=== PATIENT | female | born 1995 | race Caucasian/White ===

== ENCOUNTER 2018-09-08 07:54 | Inpatient (IN) ==
[2018-09-08] MEDS ORDERED: Famotidine 20 MG/2 ML VIAL IVP PRN (07:58)
[2018-09-08] MEDS ORDERED: miSOPROStol 25 MCG TABLET PO PRN (07:58)
[2018-09-08] MEDS ORDERED: Naloxone 0.4 MG/ML INJ IVP PRN ×2 (07:58→11:46)
[2018-09-08] MEDS ORDERED: *HR* Nalbuphine 10 MG/ML AMPUL IVP PRN (07:58)
[2018-09-08] MEDS ORDERED: Metoclopramide 10 MG/2 ML VIAL IVP PRN (07:58)
[2018-09-08 08:54] LABS: Basophils % 0.2 %; Eosinophils # 0.1 K/mcL (0.0-0.6); Eosinophils % 1.6 %; Hematocrit 33.2 % (35.3-44.9); Immature Granulocytes % 1.3 % (0-4); Lymphocytes # 1.7 K/mcL (0.6-4.6); Mean Corpuscular HGB Conc 33.1 g/dL (31.6-35.5); Mean Corpuscular Hemoglobin 30.1 pg (28.0-33.3); Mean Platelet Volume 10.4 fL (9.4-12.4); Monocytes # 0.6 K/mcL (0.0-1.3); Monocytes % 9.2 %; Neutrophils # 3.8 K/mcL (1.6-8.9); Nucleated Red Blood Cells 0.3 /100 WBC (0); Platelet Count 165 K/mcL (140-400); Red Blood Count 3.65 M/mcL (3.82-4.97); Red Cell Distribution Width 13.2 % (11.5-14.5); Segmented Neutrophils % 60.7 %
[2018-09-08] MEDS: Ringers Solution, Lactated 1,000 ML IVC SCH ×2 (08:54→14:47)
--- NOTE | 2018-09-08 08:56 | OB/GYN History & Physical ---
Date of Encounter: 09/08/18 Time of Encounter: 08:53 Assessment and Plan (1) 39 weeks gestation of Current visit: Yes Status: Acute admitted for IOL Cytotec 50mcg PO x1 Epidural when desires (2) MTHFR deficiency complicating Current visit: Yes Status: Acute OB aware, no treatment indicated. Qualifiers: Trimester: third trimester Qualified Code(s): O99.283 - Endocrine, nutritional and metabolic diseases complicating , third trimester; E72.12 - Methylenetetrahydrofolate reductase deficiency History of Present Illness Chief complaint: Scheduled IOL HPI: Ms. Armstrong is a 23 year old female @ 40w0d presents for scheduled IOL. Induction was scheduled by Dr. Peraza for the Midwives to manage. Patient reports irregular contractions and +FM. Patient denies any complications with current . Patient does have a history of Opiate abuse but has been clean for 2 years. Patient has Hep C and MTHFR. Cytotec 50 mc PO x [address] Peraza's orders. Blood type: A+ Rubella:Immune Hep B: Pending, drawn on admission GBS:Negative Hep C: Positive Past Med Surg Social Fam HX - Past Medical History Source: patient Medical history: hepatitis, other Additional medical history: MTFR, Hx opiate addiction (heroin). 2 yrs sober. Psychiatric history: no psych history - Past Surgical History Surgical History: other Additional surgical history: Lt arm surgery (pins/rods) - Social History Smoking Status: Current every day smoker Smokeless Tobacco Status: No Alcohol use: none Drug use: none - Family History Mother Hx Family Medical Disorders: Yes (hyperthyroidism) Obstetrical History - Pregnancies : 2 Para: 1 Term: 1 : 0 Ab's: 0 Livin Medications and Allergies [facility] Gummy Vitamins 1 tab PO DAILY 08/12/18 [History] Allergy/AdvReac Type Severity Reaction Status Date / Time sulfamethoxazole Allergy Mild Hives Verified 08/12/18 19:42 [From Bactrim] trimethoprim [From Bactrim] Allergy Mild Hives Verified 08/12/18 19:42 Review of System OB - Constitutional Constitutional ROS IM: no chills, no fever(s), no headache(s) - Cardiovascular Cardiovascular: no chest pain, no edema, no palpitations, no pedal edema, no syncope - Respiratory Respiratory: no dyspnea - Gastrointestinal Gastrointestinal: no abdominal pain, no cramping, no diarrhea, no heartburn, no nausea, no vomiting - Genitourinary Genitourinary: no abnormal vaginal bleeding, no dysuria, no flank pain, no urinary frequency, no urinary urgency, no vaginal odor, no vaginal pruritis Exam - Constitutional Constitutional: well developed, well nourished, no acute distress, average body habitus - HEENT HEENT: Normocephaly, Mucus Membranes Moist - Neck Neck exam: full ROM, supple - Lungs Respiratory exam: CTAB - Cardiovascular Cardiovascular exam: RRR, +S1, +S2 - Abdomen Abdomen: Present: bowel sounds normal, gravid, non tender - Extremities Extremities exam: full ROM, normal capillary refill, pedal edema (1+ bilateral lower ext) Deep Tendon Reflex Grade: 2+ Normal - Uterus Uterus exam: Present: normal size, normal contour - Anus/Rectum Anus/Rectum: Present: normal perianal skin - Comments Comments: FHR 145 bpm moderate variability +15x15 accels no decels noted. Irregular contractions. Cat. 1 tracing Results Result Diagrams: 09/08/18 08:20 All other labs normal. - VTE Reasons for not Prescribing Prophylaxis: Treatment not Indicated - Low risk for VTE
[2018-09-08 09:19] LABS: Amphetamine Screen,Urine Negative ng/mL (Cutoff=1000); Barbiturate Screen,Urine Negative ng/mL (Cutoff=200); Benzodiazepines Screen,Urine Negative ng/mL (Cutoff=200); Cannabinoid Screen,Urine Negative ng/mL (Cutoff = 50); Cocaine Screen,Urine Negative ng/mL (Cutoff= 300); Opiate Screen,Urine Negative ng/mL (Cutoff=300); Phencyclidine Screen,Urine Negative ng/mL (Cutoff=25)
[2018-09-08] MEDS ORDERED: *HR* FentaNYL (PF) 100 MCG/2 ML VIAL EP ONE (11:46)
[2018-09-08] MEDS ORDERED: Ondansetron 4 MG/2 ML VIAL IVP PRN (11:46)
[2018-09-08] MEDS ORDERED: EPHEDrine 50 MG/ML VIAL IVP PRN (11:46)
[2018-09-08] MEDS ORDERED: *HR* Ropivacaine/PF 0.2% 20 ML VIAL EP ONE (11:46)
--- NOTE | 2018-09-08 11:51 | Anesthesia Evaluation PreOp ---
Date of Encounter: 09/08/18 Time of Encounter: 11:56 - Past History Planned Operation: KENDAL Cardiac History: Denies any Significant Hx Pulmonary History: Smoker (1/2pk/day for 11 years) COMPUTER SCIENTIST History: Other (scoliosis) Other Medical History: Hepatic (Hep C), Other (MTHFR, history opiate/heroine use) Anesthesia History: No Prior Anesthetic Complications, Past Anesthesia (previous epidural, Left arm ORIF) : Yes Alcohol Use: none Drug use: none Medications and Allergies [facility] Gummy Vitamins 1 tab PO DAILY 08/12/18 [History] Allergy/AdvReac Type Severity Reaction Status Date / Time sulfamethoxazole Allergy Mild Hives Verified 08/12/18 19:42 [From Bactrim] trimethoprim [From Bactrim] Allergy Mild Hives Verified 08/12/18 19:42 - Meds/Allergy Pre-op Review Medications Reviewed: Yes Allergies Reviewed: Yes Beta Blockers on Current Med List: No Anesthesia Results - Labs 09/08/18 08:20 Anesthesia Exam BP 127/68 P 82 T 98.6 R 16 Height: 5'2" Weight: 90.6kg NPO (# of Hours): 4 Pain Scale: 5 Pain Scale Used: Numeric (1 - 10) - HEENT Pupil (Motor): Pupils equal Mallampati: II Teeth: Normal Oral Opening: Greater than 3 - COMPUTER SCIENTIST LOC: Oriented COMPUTER SCIENTIST Motor: Normal RUE, Normal LUE, Normal RLE, Normal LLE, Normal Face COMPUTER SCIENTIST Sensory: Normal: RUE, LUE, RLE, LLE, Face - Cardiac Rhythm: Regular Murmur: None JVD: No Carotid Bruit: No - Pulmonary Breath Sounds: bilateral Clear Respiratory Effort: Symmetrical Anesthesia Assess/Plan ASA Score: 2 Level of consciousness: Cooperative Anesthetic Plan: Epidural Autologous Blood: No Monitoring Plan: Standard Monitors Recovery Plan: Other
--- NOTE | 2018-09-08 11:51 | OB Labor Progress Note ---
Date of Encounter: 09/08/18 Time of Encounter: 11:49 Labor Progress Note - Subjective Subjective: Patient doing well. Reports feeling contractions at this time. - Cervix Cervix: 5.5/80/-1 - Heart Tones Heart Tones: 125 bpm moderate variability +15x15 accels no decels noted. Cat. 1 tracing - [place]: 1-3 min apart - Interventions Interventions: SVE, AROM large amount of clear fluid. Patient tolerated well. - Plan Physician notified: No Plan: Continue labor management Patient may have epidural when desires anticipate
[2018-09-08] MEDS ORDERED: Epidural Premix (fent/bupiv) 110 ML EP SCH (12:00)
[2018-09-08] MEDS ORDERED: *HR* FentaNYL (PF) 100 MCG/2 ML VIAL ONE (12:44)
[2018-09-08] MEDS ORDERED: Lidocaine -MPF 2% 5 ML VIAL ONE (12:45)
[2018-09-08] MEDS ORDERED: Ropivacaine/PF 0.2% 200 MG/100 ML INFUS..BTL EP SCH (13:15)
[2018-09-08] MEDS ORDERED: ROPIVACAINE 0.2% EP SCH (13:30)
[2018-09-08] MEDS ORDERED: Ropivacaine/PF 0.2% 500 MG/250 ML INFUS..BTL EP SCH (13:30)
--- NOTE | 2018-09-08 14:08 | Anesthesia Procedures ---
Date of Encounter: 09/08/18 Time of Encounter: 13:05 Procedures: Anesthesia - Epidural/Spinal Patient ID/Chart reviewed: Yes Patient examined: Yes OB Eval: Gestational age: 40 OB Eval: : 2 OB Eval: Hx Para: 1 OB Eval: Dilated at (cm): 5 OB Eval: Contractions: Non-stressed pattern Consent Obtained: Yes Supplemental Oxygen: None/Room Air Site Prep: Aseptic Technique, Sterile prep and drape, Povidone-Iodine 1% Patient position: upright Local Anesthetic: Lidocaine 1% Amount of Local Anesthetic used: 3 Touhy Needle Gauge: 18 Touhy Needle Depth (cm): 5 Catheter Depth at Skin (cm): 14 Test Dose (1.5% Lido + Epi): Volume given (mls): 3 Test Dose Result: Negative Loading Dose: Other: Ropivicaine 0.2% 10ml Loading Dose Administered: Thru Catheter Infusion Med: Other (Ropivicaine 2mg/ml) Infusion Rate (mls/hr): [address]: Tegaderm, Tape Interspace Used: L4-L5 Loss of Resistance (CATALINA): Yes Blood: No CSF: No Paresthesia: No Procedure: KENDAL placed 1st pass in upright position without any immediate noted complications. Ropivicaine only bolus and Ropivicaine only drip (no fentanyl) requested by patient. VSS and FHT stable throughout. Vitals + FHT's: 1305 BP 126/67 P 85 R 20 1331 BP 116/67 P 83 R 16
[2018-09-08] MEDS ORDERED: Oxytocin 20 units/ LR 1000 mL 20 UNIT/1,000 ML BAG IVC SCH ×2 (14:15→19:06)
--- NOTE | 2018-09-08 17:15 | OB/GYN Procedure Note ---
Delivery - Delivery Date: 09/08/18 Provider: Caryn Reddy Intrapartum events: none Delivery induction: AROM, oxytocin, misoprostol Delivery monitor: external FHT, external uterine Anesthesia: epidural Quantitated Blood Loss: 100 - (s) Infant A Infant Delivery Date: 09/08/18 Infant Delivery Time: 16:13 Presentation: vertex Position: OA Gender: Female Viability: Viable Pounds: 8 Ounces: 12 Weight Gram: 3.98 kg at 1 minute: 8 at 5 mins: 9 Shoulder Dystocia: not encountered Specimens collected: cord blood Placenta: spontaneous Cord: 3 umbilical vessels - Repair Laceration Description: Labial, Superficial - Complications Delivery complications: none - Disposition Mom disposition: stable in LDR disposition: stable in LDR - Comments Comments: Called to LDR patient complete and ready to push. Patient placed in stirrups and prepped for vaginal delivery. Under maternal effort patient spontaneously delivered a viable female over an intact perineum. No nuchal, shoulder dystocia or meconium encountered. Infant was placed on maternal abdomen. Cord was clamped and cut after pulsations ceased. Cord blood collected. Placenta delivered spontaneously and intact. A superficial right labial laceration noted and hemostatic. EBL 100. All counts correct. Pericare provided. Both Mother and stable in LDR for 2 hour recovery.
[2018-09-08] MEDS ORDERED: Measles/Mumps/Rubella Vacc 0.5 ML VIAL SQ PRN (19:06)
[2018-09-08] MEDS ORDERED: Lanolin 7 G OINT...G. TP PRN (19:06)
[2018-09-08] MEDS: Ibuprofen 600 MG TABLET PO PRN (20:26)
[2018-09-09] MEDS: Acetaminophen 325 MG TABLET PO PRN ×2 (01:37→09:39)
[2018-09-09] MEDS: Ibuprofen 600 MG TABLET PO PRN (04:39)
[2018-09-09 08:06] VITALS: BP 113/71
[2018-09-09] MEDS ORDERED: Prenatal Vit/FA 1 EACH TABLET PO SCH (09:00)
--- NOTE | 2018-09-09 10:49 | Discharge Summary ---
Date of Encounter: 09/09/18 Time of Encounter: 10:46 - Discharge Diagnosis (1) Vaginal delivery Priority: Primary Status: Acute Comments: Pt meeting milestones. Discharge home today. (2) Breast feeding status of mother Priority: Secondary Status: Acute - Discharge Medications Prescriptions: Ibuprofen [Motrin] 600 mg PO Q6HR PRN #30 tablet PRN Reason: Cramping Docusate [Colace] 100 mg PO BID #30 capsule Home Medications: [facility] G[facility] Vitamins 1 tab PO DAILY 08/12/18 [History] Arm Brace [Wrist Brace] 1 each MC PRN PRN #1 each 09/09/18 [Rx] Docusate [Colace] 100 mg PO BID #30 capsule 09/09/18 [Rx] Ibuprofen [Motrin] 600 mg PO Q6HR PRN #30 tablet 09/09/18 [Rx] Lanolin [Lansinoh] 1 appl TP TID PRN oint...g. 09/09/18 [Rx] Allergies/Adverse Reactions: Allergy/AdvReac Type Severity Reaction Status Date / Time sulfamethoxazole Allergy Mild Hives Verified 08/12/18 19:42 [From Bactrim] trimethoprim [From Bactrim] Allergy Mild Hives Verified 08/12/18 19:42 Data Procedures and tests throughout hospitalization: Laboratory Tests 09/08/18 09/08/18 09/08/18 08:20 08:20 08:20 WBC 6.2 RBC 3.65 L Hgb 11.0 L Hct 33.2 L MCV 91.0 MCH 30.1 MCHC 33.1 RDW 13.2 Plt Count 165 MPV 10.4 Immature Gran % 1.3 Seg Neutrophils % 60.7 Lymphocytes % 27.0 Monocytes % 9.2 Eosinophils % 1.6 Basophils % 0.2 Neutrophils # 3.8 Lymphocytes # 1.7 Monocytes # 0.6 Eosinophils # 0.1 Basophils # 0.0 Nucleated RBCs/100 WBC 0.3 H Urine Opiates Screen Negative Ur Barbiturates Screen Negative Ur Phencyclidine Scrn Negative Ur Amphetamines Screen Negative U Benzodiazepines Scrn Negative Urine Cocaine Screen Negative U Marijuana (THC) Screen Negative Ur Drug Screen Interp See Below Hep Bs Antigen Nonreactive Date of admission: 09/08/18 07:54 Primary care physician: PCP NONE Consults: 11/26/18 19:06 Consult to Senior Painter [CONS] Routine Comment: Vaginal delivery, consult needed Consult to Snack Stewardess [CONS] Routine Reason for SW Consult: cord stat for history of opiate abuse. Clean x 2 years Discharging clinician: Zabrina Singh Anticipated date of discharge: 09/09/18 - Patient Status Disposition: Home, Self-Care Condition: Good Functional capacity at discharge: independent ambulation Overall status at discharge: patient is progressing back to baseline - Discharge Instructions Follow Up With: NONE,PCP [Primary Care Provider] - Jame Peraza MD [Partnered Physician] - - Diet and Activity Activity: increase activity as tolerated Diet: regular diet Hospital Course Reason for admission: induction of labor Delivery: Episiotomy: none Laceration: other (labial) Other procedures: none complications: none Discharge diagnosis: IUP at term delivered Pep baby: female Hospital course: - Delivery Date: 09/08/18 Provider: Caryn Reddy Intrapartum events: none Delivery induction: AROM, oxytocin, misoprostol Delivery monitor: external FHT, external uterine Anesthesia: epidural Quantitated Blood Loss: 100 - Infant (s) A Delivery Date: 09/08/18 Delivery Time: 16:13 Presentation: vertex Position: OA Gender: Female Viability: Viable Pounds: 8 Ounces: 12 Weight Gram: 3.98 kg at 1 minute: 8 at 5 mins: 9 Shoulder Dystocia: not encountered Specimens collected: cord blood Placenta: spontaneous Cord: 3 umbilical vessels - Repair Laceration Description: Labial, Superficial - Complications Delivery complications: none - Disposition Mom disposition: home PPD#1 Pep disposition: RAFAL observation, Time Attestation: Total time spent providing and/or coordinating discharge services: Time Spent: Less than 30 minutes Exam - Constitutional Vitals: Temp Pulse Resp BP Pulse Ox 97.8 F 75 14 113/71 99 09/09/18 08:05 09/09/18 08:05 09/09/18 08:05 09/09/18 08:05 09/09/18 08:05 General appearance IM: A&O X 3 - Respiratory Respiratory exam: Present: CTAB - Cardiovascular Cardiovascular exam IM: Present: RRR - GI/Abdominal GI/Abdominal exam IM: soft - Uterine Tone: Firm Uterus Position: 1 Finger Below Umbilicus - Extremities Exam Extremities exam IM: Present: pedal edema (1+ bilaterally hands and feet) - Neurological Exam Neurological exam: normal gait, oriented X3 - Psychiatric Additional comments: reports good mood
== END 2018-09-09 12:39 | disposition home or self-care (01) | DRG 560 ==
LOC: 1NENULAB 07:54 → 1NENUOBS 19:09
PROVIDERS: ADMIT Advanced Practice Midwife; ATTEND Advanced Practice Midwife

== ENCOUNTER 2022-02-23 15:42 | Observation (INO) | END 2022-02-23 16:55 | disposition home or self-care (01) | LOC: 1NENULAB | PROVIDERS: ADMIT Advanced Practice Midwife; ATTEND Advanced Practice Midwife ==

== ENCOUNTER 2022-03-04 11:01 | Inpatient (IN) ==
[~2022-03-04 11:01] MED LIST: *HR* Nalbuphine 10 MG/ML AMPUL IV PRN; Famotidine 20 MG/2 ML VIAL IVP PRN; Metoclopramide 10 MG/2 ML VIAL IVP PRN; Naloxone 0.4 MG/ML INJ IVP PRN
[2022-03-04] MEDS ORDERED: Penicillin G Potassium 5,000,000 UNIT in 0.9 % Sodium Chloride Mini Bag 100 ML IVPB ONE (11:05)
[2022-03-04] MEDS ORDERED: EPHEDrine 50 MG/ML VIAL IVP PRN ×2 (11:09→14:13)
[2022-03-04] MEDS ORDERED: Epidural Premix (fent/bupiv) 110 ML EP SCH (11:15)
[2022-03-04 12:16] LABS: Basophils % 0.4 %; Eosinophils # 0.2 K/mcL (0.0-0.6); Eosinophils % 2.3 %; Hematocrit 33.8 % (35.3-44.9); Hemoglobin 11.6 g/dL (11.5-15.4); Immature Granulocytes % 0.9 % (0-4); Lymphocytes # 1.5 K/mcL (0.6-4.6); Lymphocytes % 21.4 %; Mean Corpuscular HGB Conc 34.3 g/dL (31.6-35.5); Mean Corpuscular Hemoglobin 31.6 pg (28.0-33.3); Mean Corpuscular Volume 92.1 fL (83.0-100.0); Mean Platelet Volume 10.7 fL (9.4-12.4); Monocytes # 0.6 K/mcL (0.0-1.3); Monocytes % 8.8 %; Neutrophils # 4.7 K/mcL (1.6-8.9); Platelet Count 155 K/mcL (140-400); Red Blood Count 3.67 M/mcL (3.82-4.97); Segmented Neutrophils % 66.2 %
[2022-03-04 12:26] LABS: Amphetamine Screen,Urine Negative ng/mL (Cutoff=1000); Barbiturate Screen,Urine Negative ng/mL (Cutoff=200); Benzodiazepines Screen,Urine Negative ng/mL (Cutoff=200); Cannabinoid Screen,Urine Negative ng/mL (Cutoff = 50); Cocaine Screen,Urine Negative ng/mL (Cutoff= 300); Opiate Screen,Urine Negative ng/mL (Cutoff=300); Phencyclidine Screen,Urine Negative ng/mL (Cutoff=25)
[2022-03-04] MEDS: Ringers Solution, Lactated 1,000 ML IVC SCH ×2 (12:29→22:23)
[2022-03-04 12:50] LABS: Influenza A PCR Negative (Negative); Influenza B PCR Negative (Negative); Resp. Syncytial Virus PCR Negative (Negative)
[2022-03-04 12:51] LABS: SARS-CoV-2 by PCR (In House) Negative (Negative)
[2022-03-04] MEDS ORDERED: Ropivacaine/PF 0.2% 200 ML EP SCH (14:15)
[2022-03-04] MEDS ORDERED: Oxytocin 30 UNIT/503 ML BAG IVC ONE (16:05)
[2022-03-04] MEDS: Penicillin G Potassium 2,500,000 UNIT/105 ML MLS IVPB SCH ×2 (16:09→21:09)
[2022-03-04] MEDS ORDERED: Oxytocin 30 UNIT/503 ML BAG IVC SCH (16:15)
[2022-03-04] MEDS ORDERED: Ondansetron 4 MG/2 ML VIAL IVP PRN (22:22)
[2022-03-05] MEDS ORDERED: Ibuprofen 600 MG TABLET PO ONE (01:48)
[2022-03-05] MEDS ORDERED: EPHEDrine 50 MG/ML VIAL IVP PRN (05:01)
[2022-03-05] MEDS ORDERED: *HR* Nalbuphine 10 MG/ML AMPUL IV PRN (05:01)
[2022-03-05] MEDS ORDERED: Naloxone 0.4 MG/ML INJ IVP PRN (05:01)
[2022-03-05] MEDS ORDERED: Famotidine 20 MG/2 ML VIAL IVP PRN (05:01)
[2022-03-05] MEDS ORDERED: Ringers Solution, Lactated 1,000 ML IVC SCH (05:01)
[2022-03-05] MEDS ORDERED: Benzocaine/Menthol 56 GM AEROSOL SPRAY TP PRN (05:01)
[2022-03-05] MEDS ORDERED: Lanolin 7 G OINT...G. TP PRN (05:01)
[2022-03-05] MEDS ORDERED: Oxytocin 30 UNIT/503 ML BAG IVC SCH ×2 (05:01)
[2022-03-05] MEDS ORDERED: Metoclopramide 10 MG/2 ML VIAL IVP PRN (05:01)
[2022-03-05] MEDS ORDERED: Ondansetron 4 MG/2 ML VIAL IVP PRN (06:00)
[2022-03-05] MEDS ORDERED: Ondansetron ODT 4 MG TAB.RAPDIS SL PRN (06:00)
[2022-03-05] MEDS: Acetaminophen 325 MG TABLET PO SCH ×3 (06:37→18:12)
[2022-03-05] MEDS ORDERED: Penicillin G Potassium 2,500,000 UNIT/105 ML MLS IVPB SCH (07:00)
[2022-03-05] MEDS: Ibuprofen 600 MG TABLET PO SCH ×3 (08:59→21:01)
[2022-03-05] MEDS ORDERED: Prenatal Vit/FA 1 EACH TABLET PO SCH (09:00)
[2022-03-05 20:53] VITALS: BP 111/62; PULSE 67; TEMP 97.7; O2SAT 99
[2022-03-06] MEDS: Acetaminophen 325 MG TABLET PO SCH (00:47)
== END 2022-03-06 03:30 | disposition home or self-care (01) | DRG 560 ==
LOC: 1NENULAB → 1NENUOBS 03-05 04:25
PROVIDERS: ADMIT Advanced Practice Midwife; ATTEND Advanced Practice Midwife